=== PATIENT | male | born 1935 | race Caucasian/White ===

== ENCOUNTER 2022-10-23 11:15 | Emergency (ER) | payer MEDICARE, OTHER ==
[~2022-10-23 11:15] MED LIST: ASPIRIN81 M1 PO; KEFLEX500 MG PO; LISINOPRIL20 MG; PRAVASTATIN SOD40 MG
[2022-10-23 11:20] VITALS: BP 132/78
[2022-10-23] MEDS ORDERED: AMOX-CLAV 875-1 EACH PO (13:04)
== END 2022-10-23 16:38 | disposition home or self-care (01) ==
LOC: ED 11:15
DX: S68.021A Partial traumatic metacarpophalangeal amputation of right thumb, initial encounter (principal); I10 Essential (primary) hypertension; E78.5 Hyperlipidemia, unspecified; Z79.82 Long term (current) use of aspirin; Z79.899 Other long term (current) drug therapy; W22.8XXA Striking against or struck by other objects, initial encounter; Y93.89 Activity, other specified; Y92.89 Other specified places as the place of occurrence of the external cause; Y99.8 Other external cause status